=== PATIENT | male | born 1950 | race Caucasian/White ===

== ENCOUNTER 2018-12-24 07:50 | Outpatient (CLI) | payer MEDICARE ==
[~2018-12-24 07:50] MED LIST: HYDR-3307 PO; METH750T2 PO; MORP15TA PO; OXYC1TAB7 PO; REGADENOSON 0.4 MG/5 ML SYRINGE ONE; TAMS-11 PO
== END 2018-12-24 23:59 | disposition home or self-care (01) ==
LOC: CFH 07:50
PROVIDERS: ATTEND Internal Medicine Cardiovascular Disease
DX: Z01.810 Encounter for preprocedural cardiovascular examination (principal); R06.02 Shortness of breath
CPT/HCPCS: 78452; 93017; A9502; J2785